=== PATIENT | male | born 1945 | race Asian ===

== ENCOUNTER → 2021-01-17 | Outpatient (CLI) | payer MEDICARE, OTHER ==
[~2021-01-17] MED LIST: ASPI81TA87 PO; ATEN-72 PO; CHOL200016 PO; ESOM20CA31 PO; FINA-27 PO; FISH1CAP49 PO; GLUCOSAMINE 1,51 CAP PO; ISOS60TA58 PO; LISI20TA PO; METF-960 PO; MULT-1259 PO; SIMV-46 PO; TAMS-13 PO; VITA400T9 PO
== END | disposition home or self-care (01) ==
LOC: RADPV 08:55
PROVIDERS: ATTEND Internal Medicine Cardiovascular Disease
DX: I25.10 Atherosclerotic heart disease of native coronary artery without angina pectoris (principal); I25.810 Atherosclerosis of coronary artery bypass graft(s) without angina pectoris
CPT/HCPCS: 93306

== ENCOUNTER 2023-03-28 06:19 | Day surgery (SDC) | payer MEDICARE, OTHER ==
[~2023-03-28] VITALS: Ht 170.2 cm; Wt 86.4 kg
[~2023-03-28 06:19] MED LIST changes: +KETOROLAC TROMETHAMINE 0.5% 5 ML OPHTHALMIC SOLUTION ONE; +METF-1211 PO; -METF-960 PO; +MOXIFLOXACIN HCL 0.5% 3 ML OPHTHALMIC SOLUTION ONE; +PHENYLEPHRINE HCL 2.5% 2 ML OPHTHALMIC SOLUTION ONE; +RINGERS SOLUTION,LACTATED 500 ML IV ONE; -TAMS-13 PO; +TAMS0.4C34 PO; +TROPICAMIDE 1% 2 ML OPHTHALMIC SOLUTION ONE
[2023-03-28] MEDS ORDERED: FentaNYL CITRATE PF 100 MCG/2 ML VIAL IVP ONE (06:20)
[2023-03-28] MEDS ORDERED: HYALURONATE SOD 8.5MG/0.85ML 10 MG/ML SYRINGE IO ONE (06:20)
[2023-03-28] MEDS ORDERED: MIDAZOLAM HCL 2 MG/2 ML VIAL IVP ONE (06:20)
[2023-03-28] MEDS ORDERED: EPINEPHrine 1:1,000 [1 MG/ML] VIAL ONE (06:32)
[2023-03-28] MEDS ORDERED: BALANCED SALT 15 ML OPHTHALMIC IRRIG.SOLN ONE (06:32)
[2023-03-28] MEDS ORDERED: POVIDONE-IODINE 5% 30 ML OPHTHALMIC SOLUTION ONE (06:32)
[2023-03-28] MEDS ORDERED: TETRACAINE HCL/PF 0.5% 4 ML OPHTHALMIC SOLUTION ONE (06:32)
[2023-03-28] MEDS ORDERED: LIDOCAINE/PF 1% 2 ML VIAL ONE (06:32)
[2023-03-28 07:11] LABS: GLUCOMETER DEV NAME(LOC) SDS.; GLUCOSE,POINT OF CARE 108 MG/DL (70-110)
[2023-03-28] MEDS: MOXIFLOXACIN HCL 0.5% 3 ML OPHTHALMIC SOLUTION OD SCH ×3 (08:10→08:25)
[2023-03-28] MEDS: TROPICAMIDE 1% 2 ML OPHTHALMIC SOLUTION OD SCH ×3 (08:10→08:25)
[2023-03-28] MEDS: KETOROLAC TROMETHAMINE 0.5% 5 ML OPHTHALMIC SOLUTION OD SCH ×3 (08:10→08:25)
[2023-03-28] MEDS: PHENYLEPHRINE HCL 2.5% 2 ML OPHTHALMIC SOLUTION OD SCH ×3 (08:10→08:25)
== END 2023-03-28 11:20 | disposition home or self-care (01) ==
LOC: SURGERY 06:19
PROVIDERS: ATTEND Ophthalmology
DX: E11.36 Type 2 diabetes mellitus with diabetic cataract (principal); H25.11 Age-related nuclear cataract, right eye; I10 Essential (primary) hypertension; Z79.899 Other long term (current) drug therapy; Z98.890 Other specified postprocedural states
CPT/HCPCS: 66984; 82962; 93005; J0171; J3010; J3490; J2250; Q9967; J7120; V2632